=== PATIENT | female | born 1990 | race Caucasian/White ===

== ENCOUNTER 2023-04-18 14:12 | Emergency (ER) | payer BC ==
[~2023-04-18] VITALS: Ht 162.6 cm; Wt 82.0 kg
[2023-04-18 14:16] VITALS: O2SAT 100
[2023-04-18] MEDS ORDERED: ONDANSETRON 4MG ODT PO ONE (14:30)
[2023-04-18] MEDS ORDERED: LORAZEPAM 0.5MG TABLET PO ONE (15:00)
[2023-04-18 15:38] LABS: BASOPHILS % 0.8 % (0.0-2.0); EOSINOPHILS % 1.6 % (0.0-5.0); HEMATOCRIT. 35.7 % (36.0-48.0); HEMOGLOBIN. 11.8 g/dL (12.0-16.0); LYMPHOCYTES % 32.2 % (20.0-50.0); MEAN CORPUSCULAR HEMOGLOBIN 27.6 pg (28.0-32.0); MEAN CORPUSCULAR HGB CONC 32.9 g/dL (31.0-37.0); MEAN PLATELET VOLUME 7.4 fl (7.4-10.4); NEUTROPHILS % 58.4 % (40.0-76.0); PLATELET 504 x1000/uL (130-400); RED BLOOD CELL COUNT 4.25 mill/uL (4.2-5.4); RED CELL DISTRIBUTION WIDTH 14.2 % (11.6-14.6); WHITE BLOOD COUNT 11.6 x1000/uL (4.5-11.0)
[2023-04-18 15:51] LABS: HCG SCREEN NEGATIVE
[2023-04-18 15:53] LABS: ALANINE AMINOTRANSFERASE 11 IU/L (10-49); ALBUMIN 4.8 g/dL (3.2-4.8); ASPARTATE AMINOTRANSFERASE 17 IU/L (<34); BILIRUBIN TOTAL 0.4 mg/dL (0.1-1.0); CALCIUM 9.6 mg/dL (8.7-10.4); CARBON DIOXIDE 25 mEq/L (21-32); CHLORIDE 103 mEq/L (98-107); CREATININE 0.9 mg/dL (0.6-1.0); GLUCOSE 97 mg/dL (70-105); POTASSIUM 3.6 mEq/L (3.5-5.1); PROTEIN TOTAL 8.2 g/dL (6.0-8.3); SODIUM 137 mEq/L (136-145); UREA NITROGEN BLOOD 11 mg/dL (9-23)
[2023-04-18] MEDS ORDERED: LORA-249 MT (16:12)
[2023-04-18] MEDS: ONDANSETRON 4MG ODT PO NR (17:26)
[2023-04-18] MEDS: LORAZEPAM 0.5MG TABLET PO NR (17:26)
[2023-04-18 17:27] VITALS: BP 128/75; PULSE 94; RESP 16; TEMP 97.8
== END 2023-04-18 17:28 | disposition home or self-care (01) ==
LOC: ER 14:12
DX: R11.0 Nausea (principal); F41.9 Anxiety disorder, unspecified
CPT/HCPCS: 36415; 80053; 84703; 85025; 93005; 99284; Q0162